=== PATIENT | female | born 1970 | race Caucasian/White ===

== ENCOUNTER 2018-04-03 07:45 | Emergency (ER) | payer OTHER ==
[~2018-04-03] VITALS: Ht 162.6 cm; Wt 56.7 kg
[~2018-04-03 07:45] MED LIST: CALAMINE TOP; HYDROCORTISO28.35 G1 TOP
[2018-04-03] MEDS ORDERED: CLONAZEPAM 0.50.5 M1 PO (07:55)
[2018-04-03] MEDS ORDERED: HYDROCODONE-AP1 EAC6 PO (08:31)
[2018-04-03 08:41] VITALS: BP 107/71
== END 2018-04-03 08:42 | disposition home or self-care (01) ==
LOC: M.ERS 07:45
DX: S93.491A Sprain of other ligament of right ankle, initial encounter (principal); F41.9 Anxiety disorder, unspecified; F17.200 Nicotine dependence, unspecified, uncomplicated; Z98.890 Other specified postprocedural states; W01.0XXA Fall on same level from slipping, tripping and stumbling without subsequent striking against object, initial encounter; Y93.89 Activity, other specified; Y92.89 Other specified places as the place of occurrence of the external cause; Y99.8 Other external cause status